=== PATIENT | female | born 1995 | race American Indian/Alaskan Native ===

== ENCOUNTER 2016-10-23 23:20 | Emergency (ER) | payer OTHER ==
[2016-10-24 00:21] LABS: Urine Drugs of Abuse Note Disclamer
[2016-10-24 00:34] LABS: Bilirubin,Urine NEG (Negative); Blood,Urine NEG (Negative); Ketones,Urine NEG (Negative); Leukocyte Esterase,Urine NEG (Negative); Mucus,Urine FEW /HPF; Nitrite,Urine NEG (Negative); Protein,Urine <15 mg/dL mg/dL (Negative); Urobilinogen,Urine < 2.0 mg/dL (<2.0)
[2016-10-24 00:51] LABS: Basophils % (Auto) 0.5 % (0.0-1.8); Eosinophils % (Auto) 1.5 % (0.0-4.3); Hematocrit 33.5 % (30.3-42.9); Hemoglobin 11.1 gm/dl (10.1-14.3); Mean Corpuscular HGB Conc 33 % (30-34); Mean Corpuscular Hemoglobin 28 pg (28-32); Mean Corpuscular Volume 86 fl (79-97); Platelet Count 296 K/mm3 (140-440); Red Blood Count 3.89 M/mm3 (3.65-5.03); Red Cell Distribution Width 13.8 % (13.2-15.2); White Blood Count 8.9 K/mm3 (4.5-11.0)
[2016-10-24 01:03] LABS: Anion Gap 17 mmol/L; Blood Urea Nitrogen 12 mg/dL (7-17); Calcium 8.7 mg/dL (8.4-10.2); Carbon Dioxide 25 mmol/L (22-30); Chloride 102.5 mmol/L (98-107); Glucose 87 mg/dL (65-100); Sodium 140 mmol/L (137-145)
--- NOTE | 2016-10-24 01:03 | Emergency Department Report ---
HPI - General Chief Complaint: Psych Time Seen by Provider: 10/24/16 00:53 - HPI HPI: This is a 21-year-old Afro[place] female presents to the emergency department after the patient left a drug treatment center, did drugs and alcohol, and began feeling suicidal. Patient says that she was recently at [facility] from 10/12 until 10/19 after the patient tried to kill herself via overdose of lithium. From that crisis center she went to [facility] for alcohol, drugs and psychiatric treatment. The patient left today and did cocaine, alcohol and marijuana. After that she began feeling suicidal. She has a psychiatric history of anxiety, bipolar disorder and depression. She says she takes BuSpar and divalproex. She denies any medical history. ED Past Medical Hx - Past Medical History Hx Psychiatric Treatment: Yes (depression anxiety) - Surgical History Past Surgical History?: No Additional Surgical History: csection - Social History Smoking Status: Current Every Day Smoker Substance Use Type: Alcohol - Medications Home Medications: Home Medications Medication Instructions Recorded Confirmed Last Taken Type Buspar 5 mg PO TID 10/24/16 10/24/16 Unknown History Depakote 500 mg PO BID 10/24/16 10/24/16 Unknown History RisperDAL 2 mg PO HS 10/24/16 10/24/16 Unknown History ED Review of Systems ROS: Stated complaint: SUICIDAL Other details as noted in HPI Comment: All other systems reviewed and negative Constitutional: denies: chills, fever Eyes: denies: eye pain, eye discharge, vision change ENT: denies: ear pain, throat pain Respiratory: denies: cough, shortness of breath, wheezing Cardiovascular: denies: chest pain, palpitations Gastrointestinal: denies: abdominal pain, nausea, diarrhea Genitourinary: denies: urgency, dysuria, discharge Musculoskeletal: denies: back pain, joint swelling, arthralgia Skin: denies: rash, lesions Neurological: denies: headache, weakness, paresthesias Psychiatric: anxiety, depression, suicidal thoughts. denies: auditory hallucinations, visual hallucinations, homicidal thoughts Physical Exam - Physical Exam Vital Signs: Vital Signs 10/24/16 00:15 Temperature 98.5 F Pulse Rate 115 H Blood Pressure 115/69 O2 Sat by Pulse 98 Oximetry Physical Exam: GENERAL: The patient is well-developed well-nourished. HEENT: Normocephalic. Atraumatic. Extraocular motions are intact. Patient has moist mucous membranes. Pupils equal reactive to light bilaterally. NECK: Supple. Trachea is midline. CHEST/LUNGS: Clear to auscultation. There is no respiratory distress noted. HEART/CARDIOVASCULAR: Regular. There is mild tachycardia. There is no gallop rub or murmur. ABDOMEN: Abdomen is soft, nontender. Patient has normal bowel sounds. There is no abdominal distention. SKIN: There is no rash. There is no edema. There is no diaphoresis. NEURO: The patient is awake, alert, and oriented. The patient is cooperative. The patient has no focal neurologic deficits. The patient has normal speech and gait. Cranial nerves II through XII grossly intact. MUSCULOSKELETAL: There is no tenderness or deformity. There is no limitation range of motion. There is no evidence of acute injury. Muscle strength 5 out of 5 for upper and lower extremity bilaterally. ED Course Vital Signs 10/24/16 00:15 Temperature 98.5 F Pulse Rate 115 H Blood Pressure 115/69 O2 Sat by Pulse 98 Oximetry ED Medical Decision Making - Lab Data Result diagrams: 10/24/16 00:15 10/24/16 00:15 - EKG Data -: EKG Interpreted by Nm EKG shows normal: sinus rhythm, axis, intervals, QRS complexes, ST-T waves Rate: tachycardia (107 bpm) - EKG Data When compared to previous EKG there are: previous EKG unavailable Interpretation: normal EKG - Medical Decision Making This is a 21-year-old Afro[place] female presents to the emergency department with complaint of suicidal ideations and recurrence of polysubstance abuse. Patient was recently at another psych facility for suicide attempt and ideations. She just left a rehabilitation center for drugs and alcohol today and immediately started drinking and doing drugs. The patient says she became suicidal after doing this. It may be secondary to the fact that she relapsed, it could be due to psychiatric history. Nonetheless since the patient has suicidal ideations, she will remain a 1013. Patient's labs are mostly unremarkable but her urine drug screen is positive for cocaine and marijuana, which she admits to doing. Blood alcohol level is negative. Patient had some mild tachycardia when she first came in but it has improved. Heart rate was 107 when the EKG was done and upon reevaluation it sounds even slower. Patient is medically cleared for psychiatric placement. - Differential Diagnosis depression, bipolar, anxiety, substance abuse Critical Care Time: No Critical care attestation.: If time is entered above; I have spent that time in minutes in the direct care of this critically ill patient, excluding procedure time. ED Disposition Clinical Impression: Suicidal ideations, Polysubstance abuse Depression Qualifiers: Depression Type: unspecified Qualified Code(s): F32.9 - Major depressive disorder, single episode, unspecified Disposition: DISCHARGED TO HOME OR SELFCARE Is pt being admited?: No Condition: Stable Referrals: PRIMARY CARE, [Primary Care Provider] - 3-5 Days Time of Disposition: 03:13
[2016-10-24] MEDS ORDERED: BUSPAR 5 MG PO SCH (14:00)
[2016-10-24] MEDS: BUSPAR PO SCH ×2 (14:21→22:35)
[2016-10-24] MEDS ORDERED: RisperDAL PO SCH (22:00)
[2016-10-24] MEDS ORDERED: RISPERDAL 2 MG PO SCH (22:00)
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
[2016-10-24 23:40] VITALS: BP 104/66
== END 2016-10-24 23:10 | disposition home or self-care (01) ==
LOC: EEVIPCON 23:20 → ED 23:20
DX: F31.9 Bipolar disorder, unspecified (principal); F14.10 Cocaine abuse, uncomplicated; F15.10 Other stimulant abuse, uncomplicated; F11.10 Opioid abuse, uncomplicated; Z86.19 Personal history of other infectious and parasitic diseases
CPT/HCPCS: 36415; 80048; 80307; 81001; 85025; 93005; 93010; 99285; G0480; 80320